=== PATIENT | male | born 1995 | race Caucasian/White ===

== ENCOUNTER 2025-11-04 22:52 | Emergency (ER) | payer OTHER ==
[~2025-11-04] VITALS: Ht 193 cm; Wt 99.8 kg
[2025-11-04] MEDS ORDERED: Trimethoprim/Sulfamethoxazole DS Tab PO ONE (23:55)
[2025-11-05] MEDS ORDERED: BACTRIM DS TAB1 EAC1 PO (00:18)
[2025-11-05] MEDS ORDERED: HYDHCL25 PO (00:18)
== END 2025-11-05 00:20 | disposition home or self-care (01) ==
LOC: ER 22:52
DX: S91.312A Laceration without foreign body, left foot, initial encounter (principal); W25.XXXA Contact with sharp glass, initial encounter; F41.9 Anxiety disorder, unspecified; Z59.89 Other problems related to housing and economic circumstances
CPT/HCPCS: 12002; 99282-25; A9270